=== PATIENT | female | born 1965 | race Caucasian/White ===

== ENCOUNTER 2019-08-21 17:56 | Emergency (ER) | payer SELFPAY ==
[2019-08-21] MEDS ORDERED: Proparacaine 0.5% Opth 15 ML BOT ONE (18:37)
[2019-08-21] MEDS ORDERED: Fluorescein Opthalmic Strip ONE (19:31)
[2019-08-21] MEDS ORDERED: traMADol HCl 50 MG TAB ONE (19:31)
[2019-08-21] MEDS ORDERED: Adacel (T-DAP) 0.5 ML SYRINGE ONE (20:17)
--- NOTE | 2019-08-21 20:57 | CT ---
CT FACE WITHOUT CONTRAST: 08/21/19 HISTORY: Glass cut to the left eye. Blurry vision. COMPARISON: Orbit CT from 2011. FINDINGS: Mild left periorbital soft tissue swelling. No retrobulbar hematoma. There is normal location of the lens. No anterior chamber or vitreous arch line hemorrhage is appreciated. Subtle thickening of the left sided sclera. There is no acute fracture of the face. Medial orbital pratt and lateral orbital pratt, zygoma, zygom atic arches, pterygoid plates, nasal bones are intact. Medial orbital pratt, lateral orbital pratt, orbital roofs, orbital floors, are intact. The mandible is intact. IMPRESSION: Mild left periorbital soft tissue swelling with minimal thickening of the left lateral sclera. No ret robulbar hematoma. No radiopaque foreign object. Normal location and hydration of the lens. No signif icant large volume anterior chamber or vitreous hemorrhage is appreciated. POS: HOME
[2019-08-21] MEDS ORDERED: Erythromycin Base 0.5% Oint 1 GM TUBE ONE (21:17)
== END 2019-08-21 21:24 | disposition home or self-care (01) ==
LOC: ERS 17:56
DX: S05.02XA Injury of conjunctiva and corneal abrasion without foreign body, left eye, initial encounter (principal); I10 Essential (primary) hypertension; E03.9 Hypothyroidism, unspecified; Z79.899 Other long term (current) drug therapy; W25.XXXA Contact with sharp glass, initial encounter
CPT/HCPCS: 70486; 90471; 90715